=== PATIENT | male | born 1945 | race Asian ===

== ENCOUNTER 2018-12-15 20:51 | Emergency (ER) | payer OTHER ==
[~2018-12-15] VITALS: Ht 170.2 cm; Wt 75.7 kg
[2018-12-15] MEDS ORDERED: ACETAMINOPHEN 325 MG TAB PO ONE (21:15)
[2018-12-15] MEDS ORDERED: IPRATROPIUM BROM 0.5 MG/2.5ML INH SOL NEB ONE (21:30)
[2018-12-15] MEDS ORDERED: SODIUM CHLORIDE 0.9% 500 ML IV ONE (21:30)
[2018-12-15] MEDS ORDERED: ALBUTEROL SULF 2.5 MG/0.5ML(0.5%) NEB SOLN NEB ONE (21:30)
[2018-12-15] MEDS ORDERED: methylPREDNISolone SOD SUCC 125 MG/2 ML VL IV ONE (21:30)
[2018-12-15 21:31] LABS: Basophils # (auto) 0 uL; Basophils % (auto) 0.4 % (0.0-2.0); Eosinophils # (auto) 0 uL; Eosinophils % (auto) 0.4 % (0.0-7.0); Hematocrit 42.3 % (41.0-53.0); Hemoglobin 14.5 g/dL (13.5-17.5); Lymphocytes # (auto) 2.3 uL; Lymphocytes % (auto) 21.5 % (10.0-50.0); Mean Corpuscular Hemoglobin 31.2 pg (28.0-32.0); Mean Corpuscular Hgb Conc. 34.3 g/dL (32.0-36.0); Monocytes # (auto) 0.8 uL; Monocytes % (auto) 7.2 % (0.0-12.0); Neutrophils # (auto) 7.6 uL; Neutrophils % (auto) 70.5 % (37.0-80.0); Nucleated Red Blood Cells % 0.1 %; Platelet Count (auto) 296 10^3/uL (140-450); Red Blood Cells 4.65 10^6/uL (4.5-5.90); White Blood Cell 10.8 10^3/uL (4.4-10.8)
[2018-12-15 21:53] LABS: Alanine Aminotransferase 46 U/L (16-61); Albumin 3.7 g/dL (3.4-5.0); Anion Gap 9 (5-15); Aspartate Aminotransferase 26 U/L (15-37); BUN/Creatinine Ratio 12.6; Blood Urea Nitrogen 11 mg/dL (7-18); Calcium 8.8 mg/dL (8.5-10.1); Carbon Dioxide 23 mmol/L (21-32); Chloride 100 mmol/L (98-107); GFR African American 111 mL/min; GFR Non-African American 91 mL/min; Glucose 111 mg/dL (74-106); Magnesium 2.2 mg/dL (1.6-2.6); Potassium 3.9 mmol/L (3.5-5.1); Sodium 132 mmol/L (136-145)
[2018-12-15 21:58] LABS: Alkaline Phosphatase 60 U/L (45-117); Bilirubin, Total 0.9 mg/dL (0.2-1.0); Total Protein 9.1 g/dL (6.4-8.2)
[2018-12-16 01:00] VITALS: BP 129/68
== END 2018-12-16 02:17 | disposition home or self-care (01) ==
LOC: ER 20:54
DX: J44.1 Chronic obstructive pulmonary disease with (acute) exacerbation (principal)
CPT/HCPCS: 36415; 36600; 71045; 80053; 82805; 83735; 83880; 84484; 85025; 86141; 87040; 87804; 93005; 94640; 94761; 96374; 99284; J2930; J7040; J7611; J7644

== ENCOUNTER 2018-12-22 03:47 | Inpatient (IN) | payer OTHER | END 2018-12-23 14:36 | disposition home or self-care (01) | LOC: ER 03:47 → TELE 07:35 → TELE-WESTW 09:30 | DX: J96.00 Acute respiratory failure, unspecified whether with hypoxia or hypercapnia (principal); I24.9 Acute ischemic heart disease, unspecified; J45.901 Unspecified asthma with (acute) exacerbation; J20.9 Acute bronchitis, unspecified ==